=== PATIENT | female | born 1935 | race Caucasian/White ===

== ENCOUNTER 2017-07-18 14:30 | Emergency (ER) | payer SELFPAY ==
[2017-07-18 14:48] VITALS: BP 118/69; PULSE 72; RESP 20; TEMP 98; O2SAT 96
--- NOTE | 2017-07-18 16:08 | ED PDOC ---
Arrival/HPI - General Historian: Patient, Family - General Chief Complaint: Upper Extremity Problem/Injury Time Seen by Provider: 07/18/17 15:12 - History of Present Illness Narrative History of Present Illness (Text): 07/18/17 16:04 Patient w/ pmh of HTN, high cholesterol, DM and CKD reports pain, redness and swelling of R lower leg most prominent in the R ankle after she fell 12 days ago , however she adds that she just came from [place] 15 days ago and is here visiting. States that she has applied ice and is elevating with no improvement. Otherwise: (-) fever, (-) chills, (-) cough, (-) chest pain, (-) dyspnea, (-) hemoptysis, (-) prior thromboembolic disease, (-) known malignancy. (Nuno Posadas,Cara Frye) Past Medical History - Provider Review Nursing Documentation Reviewed: Yes - Travel History If Yes, travel location?: [place] - Infectious Disease Hx of Infectious Diseases: None - Reproductive Menopause: Yes - Cardiac Hx Hypertension: Yes - Endocrine/Metabolic Hx Diabetes Mellitus Type 2: Yes - Psychiatric Hx Substance Use: No - Surgical History Other/Comment: kidney surgery - Anesthesia Hx Anesthesia: Yes Hx Anesthesia Reactions: No Hx Malignant Hyperthermia: No Family/Social History - Physician Review Nursing Documentation Reviewed: Yes Family/Social History: No Known Family HX Smoking Status: Never Smoked Hx Alcohol Use: No Hx Substance Use: No Allergies/Home Meds Allergies/Adverse Reactions: Allergies No Known Allergies Allergy (Verified 07/18/17 15:37) Home Medications: Home Meds Medication Instructions Recorded Confirmed Allopurinol [Zyloprim] 100 mg PO 07/18/17 07/18/17 Diffu-K 600 mg PO 07/18/17 07/18/17 Esomeprazole Magnesium [Nexium] 40 mg PO HS 07/18/17 07/18/17 Furosemide [Lasix] 500 mg PO DAILY 07/18/17 07/18/17 Kardegic 75 mg PO DAILY 07/18/17 07/18/17 Nebivolol [Bystolic] 2.5 mg PO BID 07/18/17 07/18/17 Nitriderm 1 patch TD 07/18/17 07/18/17 Previscan 20 mg PO 09/16/17 09/16/17 Simvastatin 20 mg PO DAILY 07/18/17 07/18/17 Tardyferon 1 tab PO DAILY 07/18/17 07/18/17 Review of Systems - Review of Systems Constitutional: Normal. absent: Fatigue, Weight Change, Fevers Respiratory: Normal. absent: SOB, Cough, Sputum Cardiovascular: Normal. absent: Chest Pain, Palpitations, Edema, Orthopnea Musculoskeletal: Normal, Arthralgias, Joint Swelling. absent: Back Pain, Neck Pain Skin: Normal. absent: Rash, Pruritis, Skin Lesions, Laceration Neurological: Normal. absent: Headache, Dizziness, Focal Weakness Physical Exam - Physical Exam Narrative Physical Exam (Text): 07/18/17 16:06 GENERAL APPEARANCE: Patient is awake, alert, oriented x 3, in no acute distress. SKIN: Warm, dry; (-) cyanosis; (-) rash. HEAD: (-) scalp swelling, (-) tenderness. EYES: (-) conjunctival pallor, (-) scleral icterus. ENMT: Pharynx: (-) erythema; airway patent: (-) stridor; mucous membranes moist. NECK: (-) tenderness, (-) stiffness, (-) lymphadenopathy, (-) thyromegaly. CHEST AND RESPIRATORY: (-) rales, (-) rhonchi, (-) wheezes, (-) pleural friction rub; breath sounds equal bilaterally. HEART AND CARDIOVASCULAR: (-) irregularity; (-) murmur, (-) gallop, (-) pericardial rub. ABDOMEN AND GI: Soft; (-) tenderness, (-) guarding, (-) rebound, (-) palpable masses, (-) CVA tenderness. EXTREMITIES: (+) erythema, swelling and tenderness of the R distal tib-mehrdad, ankle, and foot, and (-) palpable cord. Opposite leg: is wnl. Distal pulses: R foot : weak, L foot : 2+. NEURO AND PSYCH: Mental status as above. Cranial nerves grossly intact; strength symmetric. (Nuno CARRILLO,Cara Frye) Vital Signs Temp Pulse Resp BP Pulse Ox 07/18/17 14:39 98 F 72 20 118/69 96 Medical Decision Making ED Course and Treatment: 07/18/17 16:14 I was available for consultation during PA evaluation. The chart was reviewed by me, and I agree with disposition. (Jade Denise) 07/18/17 16:08 81 yo F w/ pmh of HTN, high cholesterol, DM and CKD reports pain, redness and swelling of R lower leg most prominent in the R ankle after she fell 12 days ago , however she adds that she just came from [place] 15 days ago. DDx : ankle sprain, cellulitis, r/o DVT Plan: -- Labs -- IV -- Tylenol -- Reassess and disposition -- XR R tib-fib / R foot -- US duplex RLE XR R tib-fib : (-) fracture, (-) dislocation, as read by PA XR R foot : (-) fracture, (-) dislocation, as read by PA US duplex R LE: (-) DVT, as per US tech Lab results reviewed and are wnl. WBC is nl. On re-evaluation, patient is laying in bed in no acute distress, reports no CP, dizziness, SOB or palpitations. Has no complaints at this time. PE is unchanged. Based on history , exam and diagnostic results, patient likely has cellulitis. Given bactrim ds 2 tabs po, keflex 500 mg po. Advised to keep leg elevated. Otherwise instructed to f/u with the clinic in 2 days for re-evaluation. Return to the ER at any time for any new or worsening symptoms. (Nuno CARRILLO,Cara Frye) - Lab Interpretations Lab Results: 07/18/17 16:40 07/18/17 16:40 Lab Results 07/18/17 16:40: Sodium 143, Potassium 3.9, Chloride 100, Carbon Dioxide 29, Anion Gap 18, BUN 52 H, Creatinine 1.3, Est GFR ( Amer) 48, Est GFR (Non- Af Amer) 40, Random Glucose 153 H, Calcium 9.8, Total Bilirubin 0.5, AST 27, ALT 32, Alkaline Phosphatase 86, Total Protein 7.8, Albumin 4.4, Globulin 3.4, Albumin/Globulin Ratio 1.3 07/18/17 16:40: WBC 5.9, RBC 5.10, Hgb 14.8, Hct 42.4, MCV 83.1, MCH 29.0, MCHC 34.9, RDW 14.9 H, Plt Count 234, MPV 11.0, Gran % 62.5, Lymph % (Auto) 27.3, Ida % (Auto) 5.6, Eos % (Auto) 3.7, Baso % (Auto) 0.9, Gran # 3.67, Lymph # 1.6 , Ida # 0.3, Eos # 0.2, Baso # 0.05 - RAD Interpretation Radiology Orders: 07/18/17 15:49 DUPLEX LOWER EXTRM VEIN RIGHT [US] Stat 07/18/17 15:50 FOOT RIGHT 3 VIEWS ROUTINE [RAD] Stat TIBIA FIBULA RIGHT [RAD] Stat - Medication Orders Current Medication Orders: Discontinued Medications Acetaminophen (Tylenol 325mg Tab) 975 mg PO STAT STA Stop: 07/18/17 15:51 Last Admin: 07/18/17 16:00 Dose: 975 mg Cephalexin Monohydrate (Keflex) 500 mg PO STAT STA PRN Reason: Protocol Stop: 07/18/17 17:33 Last Admin: 07/18/17 17:32 Dose: 500 mg Trimethoprim/Sulfamethoxazole (Bactrim Ds Tab) 2 tab PO STAT STA PRN Reason: Protocol Stop: 07/18/17 17:33 Last Admin: 07/18/17 17:32 Dose: 2 tab - 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 Disposition/Present on Arrival - Present on Arrival Any Indicators Present on Arrival: No History of DVT/PE: No History of Uncontrolled Diabetes: No Urinary Catheter: No History of Decub. Ulcer: No History Surgical Site Infection Following: None - Disposition Have Diagnosis and Disposition been Completed?: Yes Disposition Time: 17:30 Patient Plan: Discharge - Disposition Diagnosis: Right leg pain, Cellulitis Disposition: HOME/ ROUTINE Condition: STABLE Discharge Instructions (ExitCare): Cellulitis (ED) Print Language: MONTENEGRIN Additional Instructions: Thank you for letting us take care of you today. You were treated for R leg pain , cellulitis. The emergency medical care you received today was directed at your acute symptoms. If you were prescribed any medication, please fill it and take as directed. It may take several days for your symptoms to resolve. Return to the Emergency Department if your symptoms worsen, do not improve, or if you have any other problems. Please contact your doctor in 2 days for re-evaluation and follow up. Bring any paperwork you were given at discharge with you along with any medications you are taking to your follow up visit. Our treatment cannot replace ongoing medical care by a primary care provider (PCP) outside of the emergency department. Thank you for allowing the [facility] team to be part of your care today. If you had an X-Ray or US: A Radiologist will review the ED reading if any change in treatment is needed we will contact you. Prescriptions: Acetaminophen [Tylenol 325mg tab] 975 mg PO Q6H PRN #30 tab PRN Reason: Pain, Moderate (4-7) Cephalexin [Keflex] 500 mg PO Q6 #28 capsule Sulfamethoxazole/Trimethoprim [Bactrim DS 800 mg-160 mg] 2 tab PO BID #28 tab Referrals: PCP,NO [Primary Care Provider] - Follow up with primary Forms: [email or web address] (Ugandan)
[2017-07-18 16:59] LABS: BASO # 0.05 K/mm3 (0.0-2.0); BASO % 0.9 % (0.0-3.0); EOS # 0.2 (0.0-0.7); EOS % 3.7 % (1.5-5.0); GRAN # 3.67 (1.4-6.5); GRAN % 62.5 % (50.0-68.0); HEMATOCRIT 42.4 % (36.0-48.0); LYMPH # 1.6 (1.2-3.4); LYMPH % 27.3 % (22.0-35.0); MEAN CELL VOLUME 83.1 fl (80.0-105.0); MEAN CORPUSCULAR HGB CONC 34.9 g/dl (31.0-37.0); MONO # 0.3 (0.1-0.6); MONO % 5.6 % (1.0-6.0); RED CELL DISTRIBUTION WIDTH 14.9 % (11.5-14.5); WHITE BLOOD COUNT 5.9 10^3/ul (4.5-11.0)
[2017-07-18 17:09] LABS: ALB/GLOB RATIO 1.3 (1.1-1.8); BILIRUBIN,TOTAL 0.5 mg/dL (0.2-1.3); CALCIUM 9.8 mg/dL (8.4-10.5); POTASSIUM 3.9 mmol/L (3.6-5.0); TOTAL PROTEIN 7.8 g/dL (5.8-8.3)
[2017-07-18] MEDS ORDERED: Tmp-Smz 800 mg-160 mg DS Tab PO STA (17:32)
--- NOTE | 2017-07-19 10:12 | RAD ---
PROCEDURE: Radiographs of the right tibia and fibula. HISTORY: Pain. Please include ankle and knee. COMPARISON: Correlation made with concurrent radiographs of the right foot TECHNIQUE: Frontal and lateral views obtained. FINDINGS: BONES: No evidence of acute displaced fracture nor dislocation. The osseous structures appear intact. There are no cortical destructive changes. . Small plantar and posterior calcaneal enthesophytes are present. JOINT SPACES: Degenerative osteoarthritis of the right knee. OTHER FINDINGS: Vascular calcifications present IMPRESSION: No acute fractures. DJD right knee. If symptoms persist or occult fracture suspected clinically, recommend repeat radiographs in 5-10 days as most fractures should become radiographically evident in this timeframe.
--- NOTE | 2017-07-19 10:28 | RAD ---
PROCEDURE: Right foot dated 07/18/2017 HISTORY: pain COMPARISON: Comparison made with concurrent radiographs of the right tibia and fibula. FINDINGS: BONES: No evidence of acute displaced fracture nor dislocation. The osseous structures appear intact. No obvious cortical destructive changes. . There is tiny plantar surface calcaneal enthesophyte. JOINTS: Minor DJD 1st MTP joint. Hammertoe deformities of the 2nd through 3rd digits (most notably affecting the 3rd digit) limits evaluation to some degree SOFT TISSUES: No evidence of subcutaneous air. There appears to be some mild soft tissue swelling at the level of the ankle. Vascular calcifications are present. OTHER FINDINGS: None. IMPRESSION: No acute fractures. Hammertoe deformities limits evaluation some degree. If symptoms persist or occult fracture suspected clinically, consider repeat radiographs in 5-10 days as most fractures should become radiographically evident in this timeframe.
--- NOTE | 2017-07-19 17:43 | US ---
PROCEDURE: Right lower extremity venous US HISTORY: Leg pain and swelling. Evaluate for DVT. PHYSICIAN(S): Adi Gomez M.D. TECHNIQUE: Duplex sonography and color-flow Doppler with graded compression were used to evaluate the deep venous system of the right lower extremity. The exam is limited by body habitus and edema. FINDINGS: The visualized deep venous system of the right lower extremity is sonographically normal and compressible. Normal waveforms and augmentation are seen. There is no sonographic evidence for deep venous thrombosis in the visualized segments of the right lower extremity. IMPRESSION: 1. No sonographic evidence for deep venous thrombosis in the visualized segments of the right lower extremity.
== END 2017-07-18 17:32 | disposition home or self-care (01) ==
LOC: ED 14:30
DX: M79.604 Pain in right leg (principal); L03.115 Cellulitis of right lower limb; I12.9 Hypertensive chronic kidney disease with stage 1 through stage 4 chronic kidney disease, or unspecified chronic kidney disease; N18.9 Chronic kidney disease, unspecified; E11.9 Type 2 diabetes mellitus without complications; E78.00 Pure hypercholesterolemia, unspecified